=== PATIENT | female | born 1975 ===

== ENCOUNTER 2022-03-27 16:22 | Emergency (ER) | payer OTHER ==
[~2022-03-27] VITALS: Ht 157.5 cm; Wt 90.7 kg
[2022-03-27 16:44] VITALS: BP 148/80
== END 2022-03-27 18:40 | disposition left against medical advice (07) ==
LOC: EDH 16:22
DX: R50.9 Fever, unspecified (principal); Z53.21 Procedure and treatment not carried out due to patient leaving prior to being seen by health care provider